=== PATIENT | male | born 1960 | race Caucasian/White ===

== ENCOUNTER 2023-05-11 07:54 | Day surgery (SDC) | payer OTHER ==
[~2023-05-11] VITALS: Ht 180.3 cm; Wt 88.0 kg
[2023-05-11] VITALS (26 sets, daily range): BP systolic 129–165; BP diastolic 75–94
[~2023-05-11 07:54] MED LIST: Lactated Ringer's 1,000 ML IV SCH
[2023-05-11] MEDS ORDERED: Midazolam HCl 1MG / ML 2ML Vial ONE (09:08)
[2023-05-11] MEDS ORDERED: propofoL 40 ML IV ONE (09:08)
--- NOTE | 2023-05-11 09:26 | NUR ---
05/11/23 0926 Shon Suárez HISTORY, CHART, MEDICATIONS AND ALLERGIES REVIEWED BEFORE START OF PROCEDURE. PATIENT CONFIRMS NPO STATUS AND AGREES WITH SCHEDULED PROCEDURE. 3-LEAD EKG REVIEWED WITH PHYSICIAN PRIOR TO START OF PROCEDURE. MONITOR INTACT WITH CONTINUOUS PULSE OXIMETRY,CAPNOGRAPHY, 3-LEAD EKG, INTERMITTENT BP. SUPPLEMENTAL O2 TO BE TITRATED THROUGHOUT PROCEDURE TO MAINTAIN O2 SATURATION ABOVE 90%. PATIENT DETERMINED TO BE ASA APPROPRIATE FOR PROPOFOL SEDATION PRIOR TO START OF PROCEDURE BY
--- NOTE | 2023-05-11 09:33 | NUR ---
PT INTO STEP. Patient up to Ambulate independently. Gait steady. History, Chart, Medications and Allergies reviewed before start of procedure. Lungs clear T/O to Auscultation. Patient States Post-Procedure ride home has been arranged. Pt is having delusions of grandure, Dr. Mayo and sedation nurse notified. VSS.
--- NOTE | 2023-05-11 10:30 | NUR ---
Patient up to Ambulate independently. Gait steady. Discharge instructions reviewed with patient. Patient verbalizes understanding. Copy given to patient to take home.Lungs clear T/O to Auscultation. Discharged via wheelchair to private car for ride home.
== END 2023-05-11 10:40 | disposition home or self-care (01) ==
LOC: ORSCMMR 07:54 → ORD 08:30 → ORSCMMR 10:40
PROVIDERS: Internal Medicine Gastroenterology
PROC: 0DBC8ZX Excision of Ileocecal Valve, Via Natural or Artificial Opening Endoscopic, Diagnostic (ICD-10-PCS; principal; 2023-05-11 08:30)
PROC: 0DBN8ZX Excision of Sigmoid Colon, Via Natural or Artificial Opening Endoscopic, Diagnostic (ICD-10-PCS; principal; 2023-05-11 08:30)
DX: Z12.11 Encounter for screening for malignant neoplasm of colon (principal); D12.0 Benign neoplasm of cecum; D12.5 Benign neoplasm of sigmoid colon; K57.30 Diverticulosis of large intestine without perforation or abscess without bleeding; Z86.010 Personal history of colon polyps; E11.9 Type 2 diabetes mellitus without complications
CPT/HCPCS: 82947; 88305; J2250; J2704; J7120